=== PATIENT | female | born 1995 | race Caucasian/White ===

== ENCOUNTER 2021-04-16 21:04 | Emergency (ER) | payer OTHER ==
[2021-04-17 04:47] LABS: BASOPHIL 0.8 % (0-2); EOSINOPHIL 4.4 % (0-5); HCT 37.3 % (37.0-47.0); HGB 11.6 g/dl (12.5-16.0); LYMPHOCYTE 30.7 % (15-48); MCH 25.7 pg (25.0-31.0); MCHC 31.1 g/dL (32.0-36.0); MCV 82.7 fL (78.0-100.0); MONOCYTE 6.9 % (0-12); MPV 11.1 fL (6.0-9.5); NRBC 0; PLT 240 K/uL (150-400); RBC 4.51 M/uL (4.20-5.40); RDW 14.6 % (11.5-14.0); WBC 9.1 K/uL (4.0-10.5)
[2021-04-17 05:05] LABS: ALBUMIN 3.6 g/dL (3.4-5.0); BILIRUBIN - TOTAL 0.3 mg/dL (0.2-1.0); BUN/CREAT RATIO (CALC) 14.5 RATIO; CREATININE 0.69 mg/dL (0.51-0.95); GLOBULIN (CALCULATION) 4.1 g/dL; POTASSIUM 3.9 mmol/L (3.5-5.1); TOTAL PROTEIN 7.7 g/dL (6.4-8.2)
[2021-04-17 05:21] LABS: BILIRUBIN NEGATIVE (NEGATIVE); BLOOD TRACE-INTACT Ery/uL (NEGATIVE); CLARITY CLEAR (CLEAR); COLOR YELLOW (YELLOW); GLUCOSE (U) NORMAL (NORMAL); LEUKOCYTES 1+ Leu/uL (NEGATIVE); NITRITE NEGATIVE (NEGATIVE); PROTEIN NEGATIVE (NEGATIVE); SPECIFIC GRAVITY >=1.030 (1.001-1.030); UROBILINOGEN 0.2 mg/dL (0.2-1.0); pH 5.5 (5.0-9.0)
[2021-04-17 05:29] LABS: BACTERIA 3+
[2021-04-17] MEDS ORDERED: MACROBID100 MG PO (06:55)
== END 2021-04-17 07:05 | disposition home or self-care (01) ==
LOC: FER 21:04
PROVIDERS: Emergency Medicine
DX: K62.5 Hemorrhage of anus and rectum (principal); N39.0 Urinary tract infection, site not specified; J45.909 Unspecified asthma, uncomplicated; F17.290 Nicotine dependence, other tobacco product, uncomplicated
CPT/HCPCS: 36415; 80053; 81001; 85025; 99283

== ENCOUNTER 2021-05-14 16:46 | Emergency (ER) | payer OTHER ==
[~2021-05-14 16:46] MED LIST: MACROBID100 MG PO
[2021-05-14 20:36] LABS: BASOPHIL 0.6 % (0-2); EOSINOPHIL 2.9 % (0-5); HGB 10.9 g/dl (12.5-16.0); LYMPHOCYTE 28.9 % (15-48); MCH 25.4 pg (25.0-31.0); MCHC 30.3 g/dL (32.0-36.0); MCV 83.9 fL (78.0-100.0); MONOCYTE 6.9 % (0-12); MPV 10.5 fL (6.0-9.5); NEUTROPHIL 60.3 % (41-80); NRBC 0; PLT 238 K/uL (150-400); RBC 4.29 M/uL (4.20-5.40); RDW 14.6 % (11.5-14.0); WBC 10.2 K/uL (4.0-10.5)
[2021-05-14 20:52] LABS: ALBUMIN 3.3 g/dL (3.4-5.0); BILIRUBIN - TOTAL 0.2 mg/dL (0.2-1.0); BUN/CREAT RATIO (CALC) 8.6 RATIO; CREATININE 0.7 mg/dL (0.51-0.95); GLOBULIN (CALCULATION) 4.3 g/dL; POTASSIUM 3.7 mmol/L (3.5-5.1); TOTAL PROTEIN 7.6 g/dL (6.4-8.2)
[2021-05-14] MEDS ORDERED: FIORICET1 EACH PO (21:57)
[2021-05-14] MEDS ORDERED: ZPAK PO (21:59)
== END 2021-05-14 22:08 | disposition home or self-care (01) ==
LOC: FER 16:46
PROVIDERS: Nurse Practitioner Family
DX: G43.909 Migraine, unspecified, not intractable, without status migrainosus (principal); J32.9 Chronic sinusitis, unspecified
CPT/HCPCS: 36415; 70450; 80053; 85025; 96372; J1100; J1200; J1885; J7030